=== PATIENT | male | born 1980 ===

== ENCOUNTER 2017-03-09 11:23 | Emergency (ER) | payer BC ==
[2017-03-09] MEDS ORDERED: Tetan/Diph/Pertus SYR(Tdap)* 0.5 ML SYR(BOOSTRIX) use SYR IM ONE (12:05)
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
== END 2017-03-09 12:44 | disposition home or self-care (01) ==
LOC: UCEAST 11:23
DX: Z87.891 Personal history of nicotine dependence (principal); T20.212A Burn of second degree of left ear [any part, except ear drum], initial encounter; T20.211A Burn of second degree of right ear [any part, except ear drum], initial encounter; T22.211A Burn of second degree of right forearm, initial encounter; T20.10XA Burn of first degree of head, face, and neck, unspecified site, initial encounter; T31.10 Burns involving 10-19% of body surface with 0% to 9% third degree burns; W40.1XXA Explosion of explosive gases, initial encounter; Y93.89 Activity, other specified; Y92.9 Unspecified place or not applicable; Y99.9 Unspecified external cause status
CPT/HCPCS: 90471; 90715; 99202; G0463